=== PATIENT | female | born 1965 | race Two or more races ===

== ENCOUNTER 2018-09-21 14:21 | Emergency (ER) | payer MEDICAID, OTHER ==
[~2018-09-21] VITALS: Ht 157.5 cm; Wt 75.3 kg
[2018-09-21 16:32] VITALS: BP 114/65
== END 2018-09-21 17:10 | disposition home or self-care (01) ==
LOC: ER 14:21
DX: S90.424A Blister (nonthermal), right lesser toe(s), initial encounter (principal); X58.XXXA Exposure to other specified factors, initial encounter; Y93.89 Activity, other specified; Y92.89 Other specified places as the place of occurrence of the external cause; Y99.8 Other external cause status